=== PATIENT | male | born 1950 | race African-American/Black ===

== ENCOUNTER 2020-11-30 10:13 | Emergency (ER) | payer MEDICARE ==
[~2020-11-30] VITALS: Ht 177.8 cm; Wt 75.0 kg
[2020-11-30] MEDS ORDERED: LOSARTAN POTASSIUM 50 MG TABLET. PO STA (10:39)
[2020-11-30] MEDS ORDERED: IV NORMAL SALINE 1000ML BAG 1,000 ML IV ONE (10:45)
[2020-11-30] MEDS ORDERED: METOPROLOL SUCC 24HR ER 25 MG TAB.ER.24H. PO ONE (10:45)
[2020-11-30 10:55] LABS: BILIRUBIN,URINE NEGATIVE (NEG); CLARITY,URINE CLEAR; COLOR,URINE YELLOW; NITRITE,URINE NEGATIVE (NEG); PH,URINE 5.5 (<5.0-8.0); PROTEIN,URINE NEGATIVE (NEG-TRACE); UROBILINOGEN,URINE 0.2 mg/dL (0.2 mg/dL)
[2020-11-30 10:56] LABS: BASO % 1 % (0-3); EOS # 0.3 x10^3/uL (0.0-0.7); EOS % 8 % (0-3); HEMATOCRIT 40.9 % (39.0-53.0); HEMOGLOBIN 13.8 g/dL (13.0-17.5); LYMPH % 26 % (24-48); MEAN CORPUSCULAR HEMOGLOBIN 30 pg (25-35); MEAN CORPUSCULAR HGB CONC 34 g/dL (31-37); MEAN CORPUSCULAR VOLUME 89 fL (79-100); MONO # 0.4 x10^3/uL (0.0-1.1); MONO % 10 % (0-9); NEUT # 2.1 x10^3/uL (1.8-7.7); NEUT % 55 % (31-73); PLATELET COUNT 146 x10^3/uL (140-400); RED BLOOD COUNT 4.59 x10^6/uL (4.30-5.70); RED CELL DISTRIBUTION WIDTH 13.8 % (11.5-14.5); WHITE BLOOD COUNT 3.8 x10^3/uL (4.0-11.0)
[2020-11-30 11:05] LABS: HYALINE CASTS, URINE OCCASIONAL /HPF
[2020-11-30 11:06] LABS: BACTERIA,URINE FEW /HPF (0-FEW); RBC,URINE 0 /HPF (0-2); WBC,URINE OCC /HPF (0-4)
--- NOTE | 2020-11-30 11:07 | RAD ---
EXAM: Chest, single view. HISTORY: Dizziness. COMPARISON: None. FINDINGS: A frontal view of the chest is obtained. There is no infiltrate, pleural effusion or pneumo thorax. The heart is normal in size. There are nodular opacities overlying the lower thorax consisten t with shadows. There are calcified granulomas. IMPRESSION: No acute pulmonary finding. Electronically signed by: Kristal Silva MD (11/30/2020 11:05 AM) [id number]
--- NOTE | 2020-11-30 11:11 | RAD ---
EXAM: Head CT without contrast. HISTORY: Dizziness. TECHNIQUE: Computed tomographic images of the head were obtained without contrast. *One or more of the following individualized dose reduction techniques were utilized for this examina tion: 1. Automated exposure control. 2. Adjustment of the mA and/or kV according to patient size. 3. Use of iterative reconstruction technique. COMPARISON: None. FINDINGS: There is no acute or subacute extra-axial or intraparenchymal hemorrhage. There is no mass effect or midline shift. There is no hydrocephalus. There are extensive areas of hypodensity throughout the cerebral white matter, likely due to chronic small vessel disease. There is a suspected superimposed chronic infarct within the right frontal lobe . There is paranasal sinus because of thickening. The mastoid air cells are clear. The orbits are unrem arkable. There is no suspicious calvarial lesion. IMPRESSION: 1. Extensive bilateral cerebral white matter changes. This is most commonly due to chronic small vess el disease. However, this is advanced for patient age. 2. 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 3. Note is made that MRI is more sensitive for acute infarction. Electronically signed by: Kristal Silva MD (11/30/2020 11:09 AM) [id number]
[2020-11-30 11:12] LABS: CALCIUM 8.7 mg/dL (8.5-10.1); CREATININE 1.5 mg/dL (0.7-1.3); GFR 46.4
[2020-11-30 11:19] LABS: ALBUMIN 3.7 g/dL (3.4-5.0); ALBUMIN/GLOBULIN RATIO 1.3 (1.0-1.7); MAGNESIUM 1.8 mg/dL (1.8-2.4); TOTAL BILIRUBIN 0.4 mg/dL (0.2-1.0); TOTAL PROTEIN 6.6 g/dL (6.4-8.2)
--- NOTE | 2020-11-30 13:24 | PHYS DOC ---
Past Medical History Past Medical History: High Cholesterol, Heart Disease, Hypertension, [place] Past Surgical History: No Surgical History Smoking Status: Never Smoker Alcohol Use: Occasionally General Adult EDM: Chief Complaint: DIZZY/LIGHT HEADED HPI: HPI: Patient is a 70 year old male with history of [place] x2, hypertension, high cholesterol, who presents to the ED today complaining of dizziness that occurred twice today. He states he woke up around 730am, used the bathroom with no dizziness, went back to bed and felt dizzy while laying in his bed. Patient states he laid there for a while then around 9:00 he was up again, he states he had another episode of dizziness, he states this episode also was accompanied by nausea. Denies vomiting. Denies any chest pain or shortness of breath. Denies any dizziness on arrival to the ED. Review of Systems: Review of Systems: Constitutional: Denies fever or chills. [] Eyes: Denies change in visual acuity. [] HENT: Denies nasal congestion or sore throat. [] Respiratory: Denies cough or shortness of breath. [] Cardiovascular: Denies chest pain or edema. [] GI: Reports nausea. Denies abdominal pain, vomiting, bloody stools or diarrhea. [] : Denies dysuria. [] Musculoskeletal: Denies back pain or joint pain. [] Integument: Denies rash. [] Neurologic: Reports dizziness Denies headache, focal weakness or sensory changes. [] Psychiatric: Denies depression or anxiety. [] Heart Score: C/O Chest Pain: N/A Risk Factors: Risk Factors: DM, Current or recent (<one month) smoker, HTN, HLP, family history of CAD, obesity. Risk Scores: Score 0 - 3: 2.5% MACE over next 6 weeks - Discharge Home Score 4 - 6: 20.3% MACE over next 6 weeks - Admit for Clinical Observation Score 7 - 10: 72.7% MACE over next 6 weeks - Early Invasive Strategies Current Medications: Current Medications Medications (Trade) Dose Ordered Sig/Radha Start Time Stop Time Status Last Admin Dose Admin Losartan Potassium (Cozaar) 100 mg DAILY STAT 11/30/20 10:39 11/30/20 10:58 DC 11/30/20 11:08 100 MG Metoprolol Succinate (Toprol Xl) 12.5 mg 1X ONCE 11/30/20 10:45 11/30/20 10:58 DC 11/30/20 11:07 12.5 MG Sodium Chloride 1,000 ml @ 1,000 mls/hr 1X ONCE 11/30/20 10:45 11/30/20 11:44 DC 11/30/20 11:09 1,000 MLS/HR Allergies: Allergies: Allergies Coded Allergies Type Severity Reaction Last Updated Verified No Known Drug Allergies 11/30/20 No Physical Exam: PE: Constitutional: Well developed, well nourished, no acute distress, non-toxic appearance. [] HENT: Normocephalic, atraumatic, bilateral external ears normal, oropharynx moist, no oral exudates, nose normal. [] Eyes: PERRLA, EOMI, conjunctiva normal, no discharge. [] Neck: Normal range of motion, no tenderness, supple, no stridor. [] Cardiovascular:Heart rate regular rhythm, no murmur [] Lungs & Thorax: Bilateral breath sounds clear to auscultation [] Abdomen: Bowel sounds normal, soft, no tenderness, no masses, no pulsatile masses. [] Skin: Warm, dry, no erythema, no rash. [] Back: No tenderness, no CVA tenderness. [] Extremities: No tenderness, no cyanosis, no clubbing, ROM intact, no edema. [] Neurologic: Alert and oriented X 3, normal motor function, normal sensory function, no focal deficits noted. [] Psychologic: Affect normal, judgement normal, mood normal. [] Current Patient Data: Labs: Laboratory Tests Test 11/30/20 10:25 11/30/20 10:30 White Blood Count 3.8 x10^3/uL (4.0-11.0) L Red Blood Count 4.59 x10^6/uL (4.30-5.70) Hemoglobin 13.8 g/dL (13.0-17.5) Hematocrit 40.9 % (39.0-53.0) Mean Corpuscular Volume 89 fL (79-100) Mean Corpuscular Hemoglobin 30 pg (25-35) Mean Corpuscular Hemoglobin Concent 34 g/dL (31-37) Red Cell Distribution Width 13.8 % (11.5-14.5) Platelet Count 146 x10^3/uL (140-400) Neutrophils (%) (Auto) 55 % (31-73) Lymphocytes (%) (Auto) 26 % (24-48) Monocytes (%) (Auto) 10 % (0-9) H Eosinophils (%) (Auto) 8 % (0-3) H Basophils (%) (Auto) 1 % (0-3) Neutrophils # (Auto) 2.1 x10^3/uL (1.8-7.7) Lymphocytes # (Auto) 1.0 x10^3/uL (1.0-4.8) Monocytes # (Auto) 0.4 x10^3/uL (0.0-1.1) Eosinophils # (Auto) 0.3 x10^3/uL (0.0-0.7) Basophils # (Auto) 0.0 x10^3/uL (0.0-0.2) Sodium Level 142 mmol/L (136-145) Potassium Level 4.0 mmol/L (3.5-5.1) Chloride Level 106 mmol/L (98-107) Carbon Dioxide Level 26 mmol/L (21-32) Anion Gap 10 (6-14) Blood Urea Nitrogen 14 mg/dL (8-26) Creatinine 1.5 mg/dL (0.7-1.3) H Estimated GFR (Cockcroft-Gault) 46.4 BUN/Creatinine Ratio 9 (6-20) Glucose Level 120 mg/dL (70-99) H Calcium Level 8.7 mg/dL (8.5-10.1) Magnesium Level 1.8 mg/dL (1.8-2.4) Total Bilirubin 0.4 mg/dL (0.2-1.0) Aspartate Amino Transferase (AST) 18 U/L (15-37) Alanine Aminotransferase (ALT) 28 U/L (16-63) Alkaline Phosphatase 85 U/L (46-116) Troponin I Quantitative < 0.017 ng/mL (0.000-0.055) XG-Dok-G-Type Natriuretic Peptide 18 pg/mL (0-124) Total Protein 6.6 g/dL (6.4-8.2) Albumin 3.7 g/dL (3.4-5.0) Albumin/Globulin Ratio 1.3 (1.0-1.7) Thyroid Stimulating Hormone (TSH) 3.234 uIU/mL (0.358-3.74) Urine Collection Type Unknown Urine Color Yellow Urine Clarity Clear Urine pH 5.5 (<5.0-8.0) Urine Specific [place] 1.020 (1.000-1.030) Urine Protein Negative mg/dL (NEG-TRACE) Urine Glucose (UA) Negative mg/dL (NEG) Urine Ketones (Stick) Negative mg/dL (NEG) Urine Blood Negative (NEG) Urine Nitrite Negative (NEG) Urine Bilirubin Negative (NEG) Urine Urobilinogen Dipstick 0.2 mg/dL (0.2 mg/dL) Urine Leukocyte Esterase Negative (NEG) Urine RBC 0 /HPF (0-2) Urine WBC Occ /HPF (0-4) Urine Squamous Epithelial Cells Few /LPF Urine Bacteria Few /HPF (0-FEW) Urine Hyaline Casts Occasional /HPF Urine Mucus Mod /LPF Laboratory Tests 11/30/20 10:25 Laboratory Tests 11/30/20 10:25 Vital Signs: Vital Signs Date Time Temp Pulse Resp B/P (MAP) Pulse Ox O2 Delivery O2 Flow Rate FiO2 11/30/20 11:08 65 166/82 11/30/20 10:33 97.6 16 100 Room Air 97.6 EKG: EK interpreted by Dr leo sinus rhythm with nonspecific repolarization in the inferior leads, no STEMI, heart rate 61 [] Radiology/Procedures: Radiology/Procedures: []PROCEDURE: CT HEAD WO CONTRAST EXAM: Head CT without contrast. HISTORY: Dizziness. TECHNIQUE: Computed tomographic images of the head were obtained without contrast. *One or more of the following individualized dose reduction techniques were util ized for this examination: 1. Automated exposure control. 2. Adjustment of the mA and/or kV according to patient size. 3. Use of iterative reconstruction technique. COMPARISON: None. FINDINGS: There is no acute or subacute extra-axial or intraparenchymal hemorrhage. There is no mass effect or midline shift. There is no hydrocephalus. There are extensive areas of hypodensity throughout the cerebral white matter, likely due to chronic small vessel disease. There is a suspected superimposed chronic infarct within the right frontal lobe. There is paranasal sinus because of thickening. The mastoid air cells are clear. The orbits are unremarkable. There is no suspicious calvarial lesion. IMPRESSION: 1. Extensive bilateral cerebral white matter changes. This is most commonly due to chronic small vessel disease. However, this is advanced for patient age. 2. 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 3. Note is made that MRI is more sensitive for acute infarction. Electronically signed by: Kristal Tirado MD (11/30/2020 11:09 AM) [id number] DICTATED and SIGNED BY: KRISTAL TIRADO MD DATE: 11/30/20 [id number] PROCEDURE: PORTABLE CHEST 1V EXAM: Chest, single view. HISTORY: Dizziness. COMPARISON: None. FINDINGS: A frontal view of the chest is obtained. There is no infiltrate, pleural effusion or pneumothorax. The heart is normal in size. There are nodular opacities overlying the lower thorax consistent with shadows. There are calcified granulomas. IMPRESSION: No acute pulmonary finding. Electronically signed by: Kristal Tirado MD (11/30/2020 11:05 AM) [id number] DICTATED and SIGNED BY: KRISTAL TIRADO MD DATE: 11/30/20 [id number] 0 Course & Med Decision Making: Course & Med Decision Making Pertinent Labs and Imaging studies reviewed. (See chart for details) This is a 70-year-old male patient presenting to the ED today with dizziness 2 episodes that occurred today. No dizziness in the ED. CT of the head was negative for any acute findings, noted for small chronic infarcts and small vessel disease, patient reports has been told before he has had a stroke but he states he had no symptoms. Chest x-ray is negative. CBC with WBC 3.8 unknown baseline, troponin is normal, EKG with no acute findings, creatinine 1.5. Patient was given a liter of fluid in the ED. He states he feels better. He wants to go home. He was discharged. Instructed to follow-up with PCP as well as neurologist and lithograph printer Natacha Disclaimer: Natacha Disclaimer: This electronic medical record was generated, in whole or in part, using a voice recognition dictation system. Departure Departure Impression: Primary Impression: Dizziness Additional Impressions: Dehydration ARF (acute renal failure) Qualified Codes: N17.9 - Acute kidney failure, unspecified Disposition: HOME / SELF CARE / HOMELESS Condition: STABLE Referrals: MAGALYS JARVIS MD (PCP) follow up next week DILLON DANG MD follow up next week PREETHI HERZOG MD follow up next week Patient Instructions: Dizziness, [id number] Additional Instructions: You were evaluated for dizziness. Your creatinine was 1.5 in the emergency room with a normal BUN. We highly recommend he push fluids. Follow-up with your primary care doctor next week as well as lithograph printer and neurologist. Scripts Ondansetron (ONDANSETRON ODT) 4 Mg Tab.rapdis 1 TAB PO PRN Q6-8HRS, #16 TAB Prov: CINTHYA MILLER APRN 11/30/20 CINTHYA MILLER APRN November 30, 2020 13:24
[2020-11-30] MEDS ORDERED: ONDA4TAB12 PO (13:49)
[2020-11-30 14:30] VITALS: BP 155/98
== END 2020-11-30 14:45 | disposition home or self-care (01) ==
LOC: ER 10:13
DX: N17.9 Acute kidney failure, unspecified (principal); E86.0 Dehydration; R42 Dizziness and giddiness; E78.00 Pure hypercholesterolemia, unspecified; I11.9 Hypertensive heart disease without heart failure; I25.2 Old myocardial infarction
CPT/HCPCS: 36415; 70450; 71045; 80053; 81001; 83735; 83880; 84443; 84484; 85025; 93005; 96360; 99285; J7030

== ENCOUNTER 2021-08-31 15:21 | Emergency (ER) | payer MEDICARE ==
[~2021-08-31] VITALS: Ht 177.8 cm; Wt 77.3 kg
[~2021-08-31 15:21] MED LIST: ONDA4TAB12 PO
[2021-08-31 16:00] VITALS: BP 152/77
[2021-08-31] MEDS ORDERED: CHLO15MO2 PO (16:22)
[2021-08-31] MEDS ORDERED: AMOX1TAB11 PO (16:22)
--- NOTE | 2021-08-31 16:22 | PHYS DOC ---
Past Medical History Past Medical History: Cancer (prostate cancer), High Cholesterol, Heart D isease, Hypertension, [place] Past Surgical History: Cancer Surgery, Other Additional Past Surgical Histo: PROSTATECTOMY. cataracts Smoking Status: Never Smoker Alcohol Use: Occasionally Drug Use: None General Adult EDM: Chief Complaint: TOOTH ACHE OR PAIN HPI: HPI: Patient is a 70 year old male who presents with dental pain. Patient reports he broke a tooth on his left mandible last week. Today he was chewing and felt a sharp pain in the same tooth. Reports his last dental visit was in 1993 for placement of maxillary dentures. Patient does not have a dentist, pain is curre ntly a 08/16. Denies fever or chills. Review of Systems: Review of Systems: Constitutional: Denies fever or chills Eyes: Reports chronic L eye redness; denies eye pain HENT: Denies nasal congestion or sore throat; reports dental pain Respiratory: Denies cough or shortness of breath Cardiovascular: Denies chest pain or palpitations Musculoskeletal: Denies back pain or joint pain Integument: Denies rash or skin lesions Neurologic: Denies headache, focal weakness or sensory changes Complete systems were reviewed and found to be within normal limits, except as documented in this note. Heart Score: C/O Chest Pain: N/A Allergies: Allergies: Allergies Coded Allergies Type Severity Reaction Last Updated Verified No Known Drug Allergies 11/30/20 No Physical Exam: PE: Constitutional: Elderly, no acute distress, non-toxic appearance HENT: Normocephalic, atraumatic. Fractured and decayed L mandibular premolar without erythema or edema. Multiple dental caries and significant tooth decay. maxillary edentulous Eyes: PERRL, EOMI, left conjunctiva erythematous, no discharge Neck: Normal range of motion, no tenderness, supple Lungs & Thorax: No respiratory distress, equal chest rise and fall Skin: Warm, dry, no erythema, no rash Neurologic: Alert and oriented X 3, no focal deficits noted Psychologic: Affect normal, judgment normal Current Patient Data: Vital Signs: Vital Signs Date Time Temp Pulse Resp B/P (MAP) Pulse Ox O2 Delivery O2 Flow Rate FiO2 08/31/21 16:00 97.9 84 20 152/77 (102) 99 Room Air 97.9 EKG: EKG: [] Radiology/Procedures: Radiology/Procedures: [] Course & Med Decision Making: Course & Med Decision Making 70-year-old male presents for dental pain. Erosion/fracture of left mandibular premolar. Multiple dental caries and significant tooth decay noted. No erythema, edema or other clinical signs of infection noted. Pain is currently a 2/10. Provided prescription for antibiotics and mouthwash and advised patient to use [id number] Tylenol for pain control until he can be seen by dentist. Patient stable for discharge with outpatient follow-up with dentist. Provided list of dental care providers. Discussed findings and plan with patient, who acknowledges understanding and agreement. Dragon Disclaimer: Dragon Disclaimer: This electronic medical record was generated, in whole or in part, using a voice recognition dictation system. Departure Departure Impression: Primary Impression: Dentalgia Additional Impression: Dental caries Disposition: HOME / SELF CARE / HOMELESS Condition: STABLE Referrals: MAGALYS JARVIS MD (PCP) Patient Instructions: Dental Caries, Toothache-Brief Additional Instructions: Please follow closely with dentist. Use dental resource list as provided. May also use [id number] Tylenol as needed for pain or discomfort. Scripts Chlorhexidine Gluconate (PERIDEX) 15 Ml Mouthwash 15 ML PO BID, #473 ML 0 Refills Prov: RICHARD LEWIS DO 08/31/21 Amoxicillin/Potassium Clav (AMOX TR-K CLV 875-125 MG TAB) 1 Each Tablet 1 TAB PO BID for 7 Days, #14 TAB Prov: RICHARD LEWIS DO 08/31/21 RICHARD LEWIS DO Aug 31, 2021 16:22
== END 2021-08-31 17:36 | disposition home or self-care (01) ==
LOC: ER 15:21
DX: K02.9 Dental caries, unspecified (principal); K08.89 Other specified disorders of teeth and supporting structures; I11.9 Hypertensive heart disease without heart failure; E78.00 Pure hypercholesterolemia, unspecified; I25.2 Old myocardial infarction
CPT/HCPCS: 99283